=== PATIENT | male | born 1995 | race Asian ===

== ENCOUNTER 2021-02-19 00:31 | Emergency (ER) | payer OTHER ==
--- NOTE | 2021-02-19 02:18 | ER ---
Nurse's Notes [facility] Name: Evan Parker Age: 25 yrs Sex: Male : 1995 Arrival Date: 02/19/2021 Time: 00:39 Bed Waiting Private MD: Diagnosis: Presentation: 02/19 01:47 Chief complaint: pt called from lobby states he "knows what it is food poisoning" pt bb states he is just going to go home because he can't miss work. Instructed pt if he changes his mind to let registration know and they will notify me. ED Course: 00:39 Patient arrived in ED. 02:17 Patient's name was called from ER lob. No response. Unable to locate patient. Will bb disposition as left without being seen by a provider. Administered Medications: No medications were administered Outcome: 02:18 Patient left the ED. bb Signatures: Jaki Esparza RN RN bb Es Carrasquillo
== END 2021-02-19 02:18 | disposition left against medical advice (07) ==
LOC: ER 00:31
DX: Z53.21 Procedure and treatment not carried out due to patient leaving prior to being seen by health care provider (principal)
CPT/HCPCS: 99281

== ENCOUNTER 2022-02-10 16:18 | Emergency (ER) | payer OTHER ==
[2022-02-10] MEDS ORDERED: predniSONE 20 MG TAB ONE (16:39)
[2022-02-10] MEDS ORDERED: FAMOTIDINE 20 MG TAB ONE (16:39)
--- NOTE | 2022-02-10 17:49 | ER ---
Nurse's Notes [facility] Name: Evan Parker Age: 26 yrs Sex: Male : 1995 Arrival Date: 02/10/2022 Time: 16:21 Bed IW2 Private MD: Diagnosis: Allergy status to penicillin;Rash and other nonspecific skin eruption;Acute pharyngitis, unspecified Presentation: 02/10 16:24 Chief complaint: Patient states: took amoxicillin yesterday and I woke up with rash and jh5 itchy.. it was our babies amoxicillin but my told me it was good for me because I have a cough. Coronavirus screen: Vaccine status: Patient reports receiving the 2nd dose of the covid vaccine. Client denies travel out of the [place] in the last 14 days. Ebola Screen: Patient negative for fever greater than or equal to 101.5 degrees Fahrenheit, and additional compatible Ebola Virus Disease symptoms Patient denies exposure to infectious person. Patient denies travel to an Ebola-affected area in the 21 days before illness onset. Onset: The symptoms/episode began/occurred gradually. Anaphylaxis evaluation, no signs or symptoms of anaphylaxis were noted. Initial Sepsis Screen: Does the patient meet any 2 criteria? No. Patient's initial sepsis screen is negative. Does the patient have a suspected source of infection? No. Patient's initial sepsis screen is negative. Risk Assessment: Do you want to hurt yourself or someone else? Patient reports no desire to harm self or others. Onset of symptoms was February 10, 2022. 16:24 Method Of Arrival: Ambulatory [facility] 16:24 Acuity: FILEMON 3 jh5 Triage Assessment: 16:27 General: Appears in no apparent distress. uncomfortable, Behavior is calm, cooperative, jh5 appropriate for age. Pain: Denies pain. Historical: - Allergies: 16:27 Amoxicillin; 5 - Home Meds: 16:32 None [Active]; jh5 - PMHx: 16:32 None; jh5 - PSHx: 16:32 None; jh5 - Immunization history:: Adult Immunizations up to date. - Social history:: Smoking status: Patient reports the use of cigarette tobacco products, denies chronic smoking, but will smoke occasionally. Screenin:57 Fall Risk No fall in past 12 months (0 pts). No secondary diagnosis (0 pts). No IV (0 jl7 pts). Ambulatory Aid- None/Bed Rest/Nurse Assist (0 pts). Gait- Normal/Bed Rest/Wheelchair (0 pts) Mental Status- Oriented to own ability (0 pts). Total Mayo Fall Scale indicates No Risk (0-24 pts). Assessment: 17:57 Reassessment: Patient appears in no apparent distress at this time. No changes from [facility] previously documented assessment. Patient states feeling better. Patient states symptoms have improved. Vital Signs: 16:24 Resp 18; Weight 61.23 kg; Height 5 ft. 3 in. (160.02 cm); Pain 0/10; 5 16:32 BP 122 / 68; 5 16:33 Temp 99.2; Pulse Ox 97% ; 5 17:57 BP 123 / 88; Pulse 70; Resp 15; Pulse Ox 99% on R/A; jl7 16:24 Body Mass Index 23.91 (61.23 kg, 160.02 cm) [facility] ED Course: 16:21 Patient arrived in ED. mr 16:22 Nadiya Ernst FNP-C is [facility]. kb 16:22 Jose F Tristan DO is Attending Physician. kb 16:27 Triage completed. [facility] 16:27 Arm band placed on right wrist. [facility] 17:52 Jeevan Jones, SIMONE is Primary Nurse. 7 17:57 Patient has correct armband on for positive identification. jl7 17:57 No provider procedures requiring assistance completed. Patient did not have IV access jl7 during this emergency room visit. Administered Medications: 16:39 Drug: predniSONE 40 mg Route: PO; kb 17:52 Follow up: Response: No adverse reaction jl7 16:39 Drug: Pepcid (famotidine) 20 mg Route: PO; kb 17:52 Follow up: Response: No adverse reaction jl7 Medication: 17:57 VIS not applicable for this client. jl7 Outcome: 17:49 Discharge ordered by . kb 17:57 Discharged to home ambulatory. jl7 17:57 Condition: stable 17:57 Discharge instructions given to patient, Instructed on discharge instructions, follow up and referral plans. medication usage, Demonstrated understanding of instructions, follow-up care, medications, Prescriptions given X 2. 17:58 Patient left the ED. 7 Signatures: Nadiya Ernst FNP-C FNP-Shelby Resendiz Jahala, RN RN jl7 Luly Aleman RN RN jh5
--- NOTE | 2022-02-10 17:49 | EDPHYS ---
Physician Documentation [facility] Name: Evan Parker Age: 26 yrs Sex: Male : 1995 Arrival Date: 02/10/2022 Time: 16:21 Bed IW2 Private MD: ED Physician Jsoe F Tristan HPI: 02/10 18:47 This 26 yrs old Male presents to ER via Ambulatory with complaints of Allergic kb Reaction. 18:47 The patient presents with itching, rash. Onset: The symptoms/episode began/occurred kb yesterday. Associated signs and symptoms: Pertinent positives: rash. Possible causes: antibiotics, penicillin. Severity of symptoms: At their worst the symptoms were mild moderate in the emergency department the symptoms are unchanged. The patient has not experienced similar symptoms in the past. The patient has not recently seen a physician. Pt reports he has had a sore throat so his gave him some amoxicillin yesterday that caused him to break out into a rash and start itching. Historical: - Allergies: 16:27 Amoxicillin; [facility] - Home Meds: 16:32 None [Active]; [facility] - PMHx: 16:32 None; [facility] - PSHx: 16:32 None; [facility] - Immunization history:: Adult Immunizations up to date. - Social history:: Smoking status: Patient reports the use of cigarette tobacco products, denies chronic smoking, but will smoke occasionally. ROS: 18:46 Constitutional: Negative for fever, chills, and weight loss. kb 18:46 ENT: Positive for sore throat. 18:46 Skin: Positive for rash. 18:46 All other systems are negative. Exam: 18:46 Constitutional: This is a well developed, well nourished patient who is awake, alert, kb and in no acute distress. Head/Face: Normocephalic, atraumatic. Cardiovascular: Regular rate and rhythm with a normal S1 and S2. No gallops, murmurs, or rubs. No pulse deficits. Respiratory: Respirations even and unlabored. No increased work of breathing. Talking in full sentences Abdomen/GI: Soft, non-tender. No distention MS/ Extremity: Pulses equal, no cyanosis. Neurovascular intact. Full, normal range of motion. Neuro: Awake and alert, GCS 15, oriented to person, place, time, and situation. Moves all extremities. Normal gait. Psych: Awake, alert, with orientation to person, place and time. Behavior, mood, and affect are within normal limits. 18:46 ENT: Posterior pharynx: Airway: normal, swelling, is not appreciated, erythema, that is marked. 18:46 Skin: rash a moderate rash is noted, consistent with drug rash, and is diffusely located. Vital Signs: 16:24 Resp 18; Weight 61.23 kg; Height 5 ft. 3 in. (160.02 cm); Pain 0/10; jh5 16:32 BP 122 / 68; jh5 16:33 Temp 99.2; Pulse Ox 97% ; jh5 17:57 BP 123 / 88; Pulse 70; Resp 15; Pulse Ox 99% on R/A; jl7 16:24 Body Mass Index 23.91 (61.23 kg, 160.02 cm) jh5 MDM: 16:23 Patient medically screened. kb 18:46 Data reviewed: vital signs, nurses notes. Data interpreted: Pulse oximetry: on room air kb is 99 %. Interpretation: normal. Counseling: I had a detailed discussion with the patient and/or guardian regarding: the historical points, exam findings, and any diagnostic results supporting the discharge/admit diagnosis, lab results, the need for outpatient follow up, a family practitioner, to return to the emergency department if symptoms worsen or persist or if there are any questions or concerns that arise at home. 02/10 16:29 Order name: Strep; Complete Time: 17:14 kb 02/10 17:16 Order name: Throat Culture EDMS Administered Medications: 16:39 Drug: predniSONE 40 mg Route: PO; kb 17:52 Follow up: Response: No adverse reaction jl7 16:39 Drug: Pepcid (famotidine) 20 mg Route: PO; kb 17:52 Follow up: Response: No adverse reaction jl7 Disposition: 22:04 Co-signature as Attending Physician, Jose F Tristan DO I was immediately available on-site ms3 in the Emergency Department for consultation in the care of the patient. . Disposition Summary: 02/10/22 17:49 Discharge Ordered Location: Home kb Condition: Stable kb Diagnosis - Allergy status to penicillin kb - Rash and other nonspecific skin eruption kb - Acute pharyngitis, unspecified kb Followup: kb - With: Emergency Department - When: As needed - Reason: Worsening of condition Followup: kb - With: Private Physician - When: 2 - 3 days - Reason: Recheck today's complaints, Continuance of care, Re-evaluation by your physician Discharge Instructions: - Discharge Summary Sheet kb - Drug Allergy, [id number] kb - Pharyngitis, [id number] kb - Rash, Adult, [id number] kb Forms: - Medication Reconciliation Form kb - Thank You Letter kb - Antibiotic Education kb - Prescription Opioid Use kb Prescriptions: - Pepcid 20 mg Oral Tablet - take 1 tablet by ORAL route every 12 hours for 5 days; 10 tablet; Refills: 0, kb Product Selection Permitted - Prednisone 20 mg Oral Tablet - take 1 tablet by ORAL route once daily for 5 days; 5 tablet; Refills: 0, kb Product Selection Permitted Signatures: Dispatcher [employer] EDNadiya Watkins, EAMON-C INDUSTRIAL MAINTENANCE TECHNICIAN-Jose F Sanches DO DO ms3 Luly Aleman RN RN jh5 Jeevan Jones RN jl7
[2022-02-10 18:04] VITALS: TEMP 99.2
[2022-02-10 18:05] VITALS: BP 123/88; O2SAT 99
== END 2022-02-10 17:58 | disposition home or self-care (01) ==
LOC: ER 16:18
DX: R21 Rash and other nonspecific skin eruption (principal); J02.9 Acute pharyngitis, unspecified; Z88.0 Allergy status to penicillin; Z88.1 Allergy status to other antibiotic agents; F17.210 Nicotine dependence, cigarettes, uncomplicated
CPT/HCPCS: 87070; 87081; J7512; 99283

== ENCOUNTER 2024-06-11 04:47 | Emergency (ER) | payer OTHER ==
[2024-06-11] MEDS ORDERED: KETOROLAC 30 MG/ML INJ ONE (05:24)
[2024-06-11] MEDS ORDERED: ONDANSETRON 4 MG/2 ML VIAL ONE (05:24)
[2024-06-11] MEDS ORDERED: DIPHENOX/ATROP SULF 1 TAB PO ONE (05:24)
[2024-06-11] MEDS ORDERED: FAMOTIDINE 20 MG/2 ML VIAL IV ONE (05:25)
[2024-06-11] MEDS ORDERED: NA CHLORIDE 0.9% 1,000 ML ONE (05:25)
[2024-06-11 05:46] LABS: Albumin 4.4 g/dL (3.4-5.0); Albumin/Globulin Ratio 1.1 (1.1-1.8); Anion Gap 9.3 mEq/L (5.0-15.0); Bilirubin Total 0.7 mg/dL (0.2-1.0); Globulin 4.1 g/dL (2.3-3.5); Potassium 3.3 mEq/L (3.5-5.1); Protein, Total 8.5 g/dL (6.4-8.2)
[2024-06-11 05:51] LABS: Absolute Eosinophils 0.1 K/uL (0-0.5); Absolute Lymphocytes (CBC) 2.9 K/uL (0.7-4.9); Absolute Monocytes 0.7 K/uL (0.1-1.3); Absolute Neutrophil 7.7 K/uL (1.8-8.0); Basophils % 0.3 % (0-1.3); Eosinophils % 0.7 % (0-4.4); Hematocrit 43.1 % (39.6-49.0); Lymphocytes % 25.6 % (15.3-44.8); MCH 30.1 pg (27.0-35.0); MCHC 34.8 g/dL (32.0-36.0); MCV 86.6 fL (80-100); MPV 9.7 fL (7.6-11.3); Monocytes % 6.1 % (3.3-12.3); Neutrophils % 67.3 % (41.7-73.7); Nucleated Red Blood Cells % 0.1 % (0-0); Platelets 293 thou/uL (152-406); RBC Red Blood Cell Count 4.98 M/uL (4.33-5.43); Red Cell Distribution Width 13.5 % (12.1-15.2)
--- NOTE | 2024-06-11 07:11 | EDPHYS ---
Physician Documentation [facility] Name: Evan Parker Age: 29 yrs Sex: Male : 1995 Arrival Date: 06/11/2024 Time: 04:47 Bed 7 Private MD: ED Physician Tai Mandel HPI: 06/11 04:59 This 29 yrs old Male presents to ER via Unassigned with complaints of Rectal sp4 Bleeding, Nausea/Vomiting. 20:05 29-year-old male presents for complaint of nausea vomiting profuse watery diarrhea with sp4 streaks of blood this started 1 week ago.. 20:08 Patient also requests prescription for his Lamictal daily also his Keppra daily and sp4 prescription for Lunesta for insomnia. Patient states he is a of [employer] but was not able to get [facility] to get [facility]ills on his medications.. Historical: - Allergies: 05:06 Amoxicillin; lg3 - Home Meds: 05:06 Keppra Oral [Active]; Lamictal Oral for depression associated with bipolar disorder lg3 [Active]; unknown HTN med [Active]; unknown bipolar med [Active]; unknown cholesterol med [Active]; - PMHx: 05:06 Seizure; Hypertensive disorder; split personality disorder; Hypercholesterolemia; lg3 Depressive disorder; sleep disorder; - PSHx: 05:06 None; lg3 - Immunization history:: Adult Immunizations up to date. - Infectious Disease History:: Denies. - Social history:: Smoking status: Patient reports the use of cigarette tobacco products, denies chronic smoking, but will smoke occasionally, Reported history of juuling and/or vaping. Patient/guardian denies using alcohol, street drugs. - Family history:: not pertinent. ROS: 20:05 Constitutional: Negative for fever, chills, and weight loss, positive nausea, positive sp4 vomiting, positive diarrhea, positive small amount of blood in the diarrhea 20:05 All other systems are negative, Exam: 20:05 Constitutional: This is a well developed, well nourished patient who is awake, alert, sp4 and in no acute distress. Head/Face: Normocephalic, atraumatic. Eyes: Pupils equal round and reactive to light, extra-ocular motions intact. Lids and lashes normal. Conjunctiva and sclera are not injected. Cornea within normal limits. Periorbital areas with no swelling, redness, or edema. ENT: Nares patent. No nasal discharge, no septal abnormalities noted. Tympanic membranes are normal and external auditory canals are clear. Oropharynx with no redness, swelling, or masses, exudates, or evidence of obstruction, uvula midline. Mucous membranes moist. Neck: Trachea midline, no thyromegaly or masses palpated, and no cervical lymphadenopathy. Supple, full range of motion without nuchal rigidity, or vertebral point tenderness. Chest/axilla: Normal chest wall appearance and motion. Nontender with no deformity. No lesions are appreciated. Cardiovascular: Regular rate and rhythm with a normal S1 and S2. No gallops, murmurs, or rubs. Normal PMI, no JVD. No pulse deficits. Respiratory: Lungs have equal breath sounds bilaterally, clear to auscultation and percussion. No rales, rhonchi or wheezes noted. No increased work of breathing, no retractions or nasal flaring. Abdomen/GI: Soft, with normal bowel sounds. No distension or tympany. No guarding or rebound. No evidence of tenderness throughout. Back: No spinal tenderness. No costovertebral tenderness. Skin: Warm, dry with normal turgor. Normal color with no rashes, no lesions, and no evidence of cellulitis. MS/ Extremity: Pulses equal, no cyanosis. Neurovascular intact. Full, normal range of motion. Neuro: Awake and alert, GCS 15, oriented to person, place, time, and situation. Cranial nerves II-XII grossly intact. Motor strength 5/5 in all extremities. Sensory grossly intact. Psych: Awake, alert, with orientation to person, place and time. Behavior, mood, and affect are within normal limits Vital Signs: 05:04 BP 151 / 77; Pulse 90; Resp 16 S; Temp 98.2(O); Pulse Ox 98% on R/A; Weight 56.7 kg lg3 (R); Height 5 ft. 2 in. (R); Pain 10/10; 06:24 BP 106 / 81; Pulse 53; Resp 18; Pulse Ox 100% on R/A; oe 05:04 Body Mass Index 22.86 (56.70 kg, 157.48 cm) lg3 05:04 Pain Scale: Adult lg3 Vanessa Coma Score: 20:05 Eye Response: spontaneous(4). Motor Response: obeys commands(6). Verbal Response: sp4 oriented(5). Total: 15. MDM: 07:10 Medical Screening Exam initiated sp4 20:08 Differential diagnosis: hemorrhoids, fissure, abscess, condyloma. Data reviewed: vital sp4 signs, nurses notes, lab test result(s). Consideration of Admission/Observation Escalation of care including admission/observation considered. ED course: Patient was provided with prescription for his Keppra Lamictal and Lunesta.. 06/11 05:17 Order name: CBC with Diff; Complete Time: 06:57 sp4 06/11 05:17 Order name: CMP; Complete Time: 06:57 sp4 06/11 05:17 Order name: Lipase; Complete Time: 06:57 sp4 06/11 05:17 Order name: IV Saline Lock; Complete Time: 05:33 sp4 06/11 05:17 Order name: Labs collected and sent; Complete Time: 05:33 sp4 Administered Medications: 05:32 Drug: NS 0.9% IV 1000 ml IV at 1 bolus Per protocol; to be given as a bolus over 60 kd3 minutes Route: IV; Rate: 1 bolus; Site: right antecubital; 07:39 Follow up: Response: No adverse reaction; IV Status: Completed infusion; IV Intake: ll1 1000ml 05:32 Drug: Diphenoxylate-Atropine PO 2 tabs PO once Route: PO; kd3 09:27 Follow up: Response: No adverse reaction ll1 05:41 Drug: Famotidine IVP 20 mg IVP once; dilute with 10 mL 0.9% NaCl; give over 2 minutes kd3 Route: IVP; Site: right antecubital; 09:27 Follow up: Response: No adverse reaction ll1 05:41 Drug: TORadol - Ketorolac IVP 15 mg IVP once Route: IVP; Site: right antecubital; kd3 09:28 Follow up: Response: No adverse reaction ll1 05:41 Drug: Ondansetron IVP 8 mg IVP once; over 2 minutes Route: IVP; Site: right antecubital;kd3 09:28 Follow up: Response: No adverse reaction ll1 Disposition: 20:08 Chart complete. sp4 Disposition Summary: 06/11/24 07:10 Discharge Ordered Notes: Location: Home sp4 Problem: new sp4 Symptoms: have improved sp4 Condition: Stable sp4 Diagnosis - Acute viral gastroenteritis, bipolar disorder sp4 - Acute diarrheal illness, insomnia sp4 Followup: sp4 - With: Private Physician - When: 7 - 10 days - Reason: Recheck today's complaints Discharge Instructions: - Discharge Summary Sheet sp4 - Viral Gastroenteritis, Adult, [id number] sp4 Forms: - Patient Portal Instructions sp4 Prescriptions: - Keppra 1,000 mg Oral tablet - take 1 tablet ORAL route every 12 hours; 60 tablet; Refills: 0, Product sp4 Selection Permitted - Lunesta 1 mg Oral tablet - take 1 tablet ORAL route every day at bedtime for 10 days PRN insomnia; 10 sp4 tablet; Refills: 0, Product Selection Permitted - Lamictal 100 mg Oral Tablet - take 2 tablets ORAL route every 12 hours; 60 tablet; Refills: 0, Product sp4 Selection Permitted - Lomotil 2.5-0.025 mg Oral tablet - take 1 tablet ORAL route every 6 hours As needed PRN diarrhea; 30 tablet; sp4 Refills: 0, Product Selection Permitted - ondansetron 8 mg Oral Tablet,disintegrating - take 1 tablet ORAL route every 8 hours PRN nausea; 30 tablet; Refills: 0, sp4 Product Selection Permitted Signatures: Dispatcher [employer] Mine Kirk RN RN lg3 Zoila Worthington RN RN kd3 Tai Mandel MD MD sp4 Roger Arroyo RN ll1
--- NOTE | 2024-06-11 07:11 | ER ---
Nurse's Notes [facility] Name: Evan Parker Age: 29 yrs Sex: Male : 1995 Arrival Date: 06/11/2024 Time: 04:47 Bed 7 Private MD: Diagnosis: Acute viral gastroenteritis, bipolar disorder ;Acute diarrheal illness, insomnia Presentation: 06/11 05:04 Chief complaint: Patient states: nausea/vomiting X7 days. diarrhea, rectal bleeding and lg3 rectal pain 10/10 X5 days. Coronavirus screen: Client denies travel out of the [place] in the last 14 days. At this time, the client does not indicate any symptoms associated with coronavirus-19. Ebola Screen: No symptoms or risks identified at this time. Initial Sepsis Screen: Does the patient meet any 2 criteria? No. Patient's initial sepsis screen is negative. Does the patient have a suspected source of infection? No. Patient's initial sepsis screen is negative. Risk Assessment: Do you want to hurt yourself or someone else? Patient reports no desire to harm self or others. Onset of symptoms is unknown. 05:04 Method Of Arrival: Ambulatory lg3 05:04 Acuity: FILEMON 3 lg3 Triage Assessment: 05:06 General: Appears in no apparent distress. uncomfortable, Behavior is calm, cooperative. lg3 Pain: Complains of pain in rectum Pain currently is 10 out of 10 on a pain scale. EENT: No deficits noted. No signs and/or symptoms were reported regarding the EENT system. Neuro: No deficits noted. Burns Agitation-Sedation Scale (RASS): 0 - Alert and Calm Level of Consciousness is awake, alert, obeys commands, Oriented to person, place, time, situation. Cardiovascular: No deficits noted. Denies chest pain, shortness of breath, Capillary refill < 3 seconds Clubbing of nail beds is absent JVD is absent Patient's skin is warm and dry. Respiratory: No deficits noted. Airway is patent Respiratory effort is even, unlabored, Respiratory pattern is regular, symmetrical. GI: Reports lower abdominal pain, upper abdominal pain, diarrhea, nausea, vomiting. GI: Reports rectal bleeding, bloody stool. : No signs and/or symptoms were reported regarding the genitourinary system. Derm: No deficits noted. No signs and/or symptoms reported regarding the dermatologic system. Skin is intact, is healthy with good turgor, Skin is dry, Skin is normal, Skin temperature is warm. Musculoskeletal: No deficits noted. No signs and/or symptoms reported regarding the musculoskeletal system. Circulation, motion, and sensation intact. Range of motion: intact in all extremities. Historical: - Allergies: 05:06 Amoxicillin; lg3 - Home Meds: 05:06 Keppra Oral [Active]; Lamictal Oral for depression associated with bipolar disorder lg3 [Active]; unknown HTN med [Active]; unknown bipolar med [Active]; unknown cholesterol med [Active]; - PMHx: 05:06 Seizure; Hypertensive disorder; split personality disorder; Hypercholesterolemia; lg3 Depressive disorder; sleep disorder; - PSHx: 05:06 None; lg3 - Immunization history:: Adult Immunizations up to date. - Infectious Disease History:: Denies. - Social history:: Smoking status: Patient reports the use of cigarette tobacco products, denies chronic smoking, but will smoke occasionally, Reported history of juuling and/or vaping. Patient/guardian denies using alcohol, street drugs. - Family history:: not pertinent. Screenin:13 [facility] ED Fall Risk Assessment (Adult) History of falling in the last 3 months, lg3 including since admission No falls in past 3 months (0 pts) Confusion or Disorientation No (0 pts) Intoxicated or Sedated No (0 pts) Impaired Gait No (0 pts) Mobility Assist Device Used No (0 pt) Altered Elimination No (0 pt) Score/Fall Risk Level 0 - 2 = Low Risk Oriented to surroundings, Maintained a safe environment, Educated pt \T\ family on fall prevention, incl call for assistance when getting out of bed, Assessed \T\ reinforced patient's understanding of fall precautions. Abuse screen: Denies threats or abuse. Denies injuries from another. Nutritional screening: No deficits noted. Tuberculosis screening: No symptoms or risk factors identified. Assessment: 06:45 General: Appears in no apparent distress. Behavior is calm, cooperative. General: Pt kd3 report improvement of overall symptoms. Pt VSS. no further requests at this time. . Neuro: Level of Consciousness is awake, alert, obeys commands, Oriented to person, place, time, situation. Respiratory: Airway is patent Trachea midline Respiratory effort is even, unlabored, Respiratory pattern is regular, symmetrical. GI: Abdomen is non-distended. Vital Signs: 05:04 BP 151 / 77; Pulse 90; Resp 16 S; Temp 98.2(O); Pulse Ox 98% on R/A; Weight 56.7 kg lg3 (R); Height 5 ft. 2 in. (R); Pain 10/10; 06:24 BP 106 / 81; Pulse 53; Resp 18; Pulse Ox 100% on R/A; oe 05:04 Body Mass Index 22.86 (56.70 kg, 157.48 cm) lg3 05:04 Pain Scale: Adult lg3 [place] Coma Score: 20:05 Eye Response: spontaneous(4). Motor Response: obeys commands(6). Verbal Response: sp4 oriented(5). Total: 15. ED Course: 04:50 Patient arrived in ED. [email or web address] 04:54 Zoila Worthington, SIMONE is Primary Nurse. kd3 04:59 Tai Mandel MD is Attending Physician. sp4 05:06 Triage completed. lg3 05:06 Arm band placed on right wrist. lg3 05:13 Patient has correct armband on for positive identification. Placed in gown. Bed in low lg3 position. Call light in reach. Side rails up X 1. Client placed on continuous cardiac and pulse oximetry monitoring. NIBP monitoring applied. Door closed. Noise minimized. Warm blanket given. Pillow given. 05:21 No provider procedures requiring assistance completed. Inserted saline lock: 20 gauge kd3 in right antecubital area, using aseptic technique. Blood collected. Flushed with 10 mL NS. 05:22 Initial lab(s) drawn, by me, sent to lab. Urine collected: clean catch specimen, clear. kd3 05:33 CBC with Diff Sent. kd3 05:33 CMP Sent. kd3 05:33 Lipase Sent. kd3 07:40 Provided Education on: ER procedures and process. ll1 07:40 IV discontinued, intact, bleeding controlled, No redness/swelling at site. Pressure ll1 dressing applied. Administered Medications: 05:32 Drug: NS 0.9% IV 1000 ml IV at 1 bolus Per protocol; to be given as a bolus over 60 kd3 minutes Route: IV; Rate: 1 bolus; Site: right antecubital; 07:39 Follow up: Response: No adverse reaction; IV Status: Completed infusion; IV Intake: ll1 1000ml 05:32 Drug: Diphenoxylate-Atropine PO 2 tabs PO once Route: PO; kd3 09:27 Follow up: Response: No adverse reaction ll1 05:41 Drug: Famotidine IVP 20 mg IVP once; dilute with 10 mL 0.9% NaCl; give over 2 minutes kd3 Route: IVP; Site: right antecubital; 09:27 Follow up: Response: No adverse reaction ll1 05:41 Drug: TORadol - Ketorolac IVP 15 mg IVP once Route: IVP; Site: right antecubital; kd3 09:28 Follow up: Response: No adverse reaction ll1 05:41 Drug: Ondansetron IVP 8 mg IVP once; over 2 minutes Route: IVP; Site: right antecubital;kd3 09:28 Follow up: Response: No adverse reaction ll1 Medication: 09:27 VIS not applicable for this client. ll1 Intake: 07:39 IV: 1000ml; Total: 1000ml. ll1 Outcome: 07:10 Discharge ordered by sp4 07:40 Patient left the ED. ll1 07:40 Discharged to home ambulatory, ll1 07:40 Condition: stable 07:40 Discharge instructions given to patient, Instructed on discharge instructions, follow up and referral plans. medication usage, Demonstrated understanding of instructions, follow-up care, medications, Prescriptions given X x 5 Signatures: Kennedy Duarte Lacie, RN RN lg3 Roger Arroyo RN RN ll1 Patricia [email or web address] Zoila Worthington RN RN kd3 Tai Mandel MD MD sp4
[2024-06-11 07:51] VITALS: TEMP 98.2
[2024-06-11 07:56] VITALS: BP 106/81; O2SAT 100
== END 2024-06-11 07:40 | disposition home or self-care (01) ==
LOC: ER 04:47
DX: A08.4 Viral intestinal infection, unspecified (principal); G47.00 Insomnia, unspecified; F31.9 Bipolar disorder, unspecified
CPT/HCPCS: 85025; 36415; 83690; 80053; J2405; J7030; 96361; 96374; 96375; 99284